=== PATIENT | female | born 1995 | race Caucasian/White ===

== ENCOUNTER 2017-06-06 18:59 | Emergency (ER) | payer OTHER ==
[2017-06-06 19:08] VITALS: RESP 16
[2017-06-06] MEDS ORDERED: NS 1,000 ML IV ONE (19:24)
--- NOTE | 2017-06-06 19:25 | EDPHY ---
H & P Stated Complaint: extended syncopal event with blood draw Time Seen by Provider: 06/06/17 19:12 HPI/ROS: Chief Complaint: Syncope HPI: 21-year-old female was at her doctor's office today and had bloods drawn. About 10 minutes after the blood draw while walking out she had a syncopal episode. Mom caught her lowered to the ground. The patient was unconscious for about 10 minutes. She was attended to by her physician and recovered. She was cautioned that if she continued to have any symptoms she should come the hospital. Patient states she is still complaining of feeling a little bit short of breath and is still feeling nauseated. She has a family history that is significant as her brother has factor 5 Leiden and has had multiple blood clots in the past. He is currently taking Xarelto. She has not been tested. She denies any palpitations. No prior episodes of syncope. No recent fevers or chills. No leg pain or swelling. Last menstrual. Was 2 weeks ago was normal. She does not take control. ROS: 10 point Review of Systems is negative except as noted in the HPI. PMH: Denies Social History: No smoking, no alcohol, no recreational drug use Family History: non-contributory Physical Exam: Gen: Awake, Alert, No Distress HEENT: Nose: no rhinorrhea Eyes: PERRLA, EOMI Mouth: Moist mucosa Neck: Supple, no JVD Chest: nontender, lungs clear to auscultation Heart: S1, S2 normal, no murmur Abd: Soft, non-tender, no guarding Back: no CVA tenderness, no midline tenderness Ext: no edema, non-tender Skin: no rash Neuro: CN II-XII intact, Sensation grossly intact, Strength 5/5 in bilateral upper and lower extremities - Personal History LMP (Females 10-55): 8-14 Days Ago Current Tetanus/Diphtheria Vaccine: Yes - Medical/Surgical History Hx Asthma: No Hx Chronic Respiratory Disease: No Hx Diabetes: No Hx Cardiac Disease: No Hx Renal Disease: No Hx Cirrhosis: No Hx Alcoholism: No Hx HIV/AIDS: No Hx Splenectomy or Spleen Trauma: No Other PMH: anxiety/acne - Social History Smoking Status: Never smoked Constitutional: Initial Vital Signs Temperature (C) 37.1 C 06/06/17 19:05 Heart Rate 83 06/06/17 19:05 Respiratory Rate 16 06/06/17 19:05 Blood Pressure 112/74 06/06/17 19:05 O2 Sat (%) 98 06/06/17 19:05 O2 Delivery Mode Room Air Allergies/Adverse Reactions: No Known Allergies Allergy (Unverified 06/06/17 19:04) Home Medications: Medication Instructions Recorded PROPRANOLOL/HYDROCHLOROTHIAZID 06/06/17 Spironolactone 06/06/17 Medical Decision Making - Diagnostics EKG Interpretation: ECG time 7:28 p.m., sinus rhythm with a rate of 78, normal axis, normal intervals, no acute ST or T-wave changes. ED Course/Re-evaluation: 21-year-old with syncopal episode after blood drawn today. While this is likely secondary to vasovagal event she has a family history of a brother with factor 5 Leiden. She also also was on wrist conscious for 10 minutes. Will obtain a ECG, blood work and D-dimer. Will L fluid and reassess. Patient's ECG is normal. Her D-dimer is normal. CBC is negative. - Data Points Laboratory Results: Laboratory Results 06/06/17 19:35 06/06/17 19:35 06/06/17 06/06/17 06/06/17 19:35 19:35 19:35 WBC 9.21 10^3/uL 10^3/uL (3.80-9.50) RBC 4.58 10^6/uL 10^6/uL (4.18-5.33) Hgb 14.0 g/dL g/dL (12.6-16.3) Hct 42.3 % % (38.0-47.0) MCV 92.4 fL fL (81.5-99.8) MCH 30.6 pg pg (27.9-34.1) MCHC 33.1 g/dL g/dL (32.4-36.7) RDW 11.7 % % (11.5-15.2) Plt Count 322 10^3/uL 10^3/uL (150-400) MPV 10.1 fL fL (8.7-11.7) Neut % (Auto) 72.4 % % (39.3-74.2) Lymph % (Auto) 19.2 % % (15.0-45.0) [place] % (Auto) 6.2 % % (4.5-13.0) Eos % (Auto) 1.1 % % (0.6-7.6) Baso % (Auto) 0.7 % % (0.3-1.7) Nucleat RBC Rel Count 0.0 % % (0.0-0.2) Absolute Neuts (auto) 6.67 10^3/uL H 10^3/uL (1.70-6.50) Absolute Lymphs (auto) 1.77 10^3/uL 10^3/uL (1.00-3.00) Absolute Monos (auto) 0.57 10^3/uL 10^3/uL (0.30-0.80) Absolute Eos (auto) 0.10 10^3/uL 10^3/uL (0.03-0.40) Absolute Basos (auto) 0.06 10^3/uL 10^3/uL (0.02-0.10) Absolute Nucleated RBC 0.00 10^3/uL 10^3/uL (0-0.01) Immature Gran % 0.4 % % (0.0-1.1) Immature Gran # 0.04 10^3/uL 10^3/uL (0.00-0.10) D-Dimer < 0.27 ug/mLFEU ug/mLFEU (0.00-0.50) Sodium 141 mEq/L mEq/L (134-144) Potassium 4.2 mEq/L mEq/L (3.5-5.2) Chloride 103 mEq/L mEq/L (97-110) Carbon Dioxide 21 mEq/l L mEq/l (22-31) Anion Gap 17 mEq/L H mEq/L (8-16) BUN 15 mg/dL mg/dL (7-23) Creatinine 0.8 mg/dL mg/dL (0.6-1.0) Estimated GFR > 60 Glucose 84 mg/dL mg/dL (70-100) Calcium 8.6 mg/dL mg/dL (8.5-10.4) Medications Given: Discontinued Medications Sodium Chloride (Ns) 1,000 mls @ 0 mls/hr IV ONCE ONE PRN Reason: Wide Open Stop: 06/06/17 19:25 Last Admin: 06/06/17 19:36 Dose: 1,000 mls Departure - Departure Disposition: Home, Routine, Self-Care Clinical Impression: Vasovagal syncope Condition: Good Instructions: Syncope (ED) Additional Instructions: Drink plenty of fluids. Follow up with primary care doctor in 2-3 days for re-evaluation if symptoms are not improved. Return emergency department if you faint again, have chest pain or palpitations. Gastrointestinal breath, fevers or chills, or any other concerns. Referrals: Zelda Jones MD [Primary Care Provider] - As per Instructions
--- NOTE | 2017-06-06 19:30 | CPEKG ---
Heart Rate: 78 RR Interval: 769 P-R Interval: 140 QRSD Interval: 82 QT Interval: 376 QTC Interval: 429 P Harshaw: 50 QRS Harshaw: 63 T Wave Harshaw: -12 EKG Severity - BORDERLINE ECG - EKG Impression: SINUS RHYTHM EKG Impression: BORDERLINE T ABNORMALITIES, INFERIOR LEADS Electronically Signed By: Noel Guy 06-Jun-2017 23:22:54
[2017-06-06 19:43] LABS: % IMMATURE GRANULYOCYTES 0.4 % (0.0-1.1); ABSOLUTE IMMATURE GRANULOCYTES 0.04 10^3/uL (0.00-0.10); ADD DIFF? NO; ADD MORPH? NO; ADD SCAN? NO; ATYPICAL LYMPHOCYTE FLAG 20 (0-99); FRAGMENT RBC FLAG 0 (0-99); HEMATOCRIT 42.3 % (38.0-47.0); LEFT SHIFT FLG 0 (0-99); LIPEMIA HEMOLYSIS FLAG 80 (0-99); MEAN CELL HEMOGLOBIN 30.6 pg (27.9-34.1); MEAN CELL HEMOGLOBIN CONCENTR. 33.1 g/dL (32.4-36.7); MEAN CELL VOLUME 92.4 fL (81.5-99.8); MEAN PLATELET VOLUME 10.1 fL (8.7-11.7); PLATELET CLUMPS FLAG 10 (0-99); PLATELET COUNT 322 10^3/uL (150-400); RED BLOOD CELL COUNT 4.58 10^6/uL (4.18-5.33); RED CELL DISTRIBUTION WIDTH 11.7 % (11.5-15.2)
[2017-06-06 19:56] LABS: ANION GAP 17 mEq/L (8-16); CALCIUM 8.6 mg/dL (8.5-10.4); CARBON DIOXIDE 21 mEq/l (22-31); CHLORIDE 103 mEq/L (97-110); CREATININE 0.8 mg/dL (0.6-1.0); GLOMERULAR FILTRATION RATE > 60; GLUCOSE 84 mg/dL (70-100); POTASSIUM 4.2 mEq/L (3.5-5.2); SODIUM 141 mEq/L (134-144)
[2017-06-06 20:57] VITALS: BP 111/65; PULSE 66; TEMP 99.5; O2SAT 96
== END 2017-06-06 20:56 | disposition home or self-care (01) ==
DX: R55 Syncope and collapse (principal)

== ENCOUNTER 2018-05-04 17:32 | Emergency (ER) | payer OTHER ==
[2018-05-04] MEDS ORDERED: ONDANSETRON DISINTEGRATING 4 MG TAB PO ONE (17:45)
--- NOTE | 2018-05-04 18:03 | EDPHY ---
H & P Stated Complaint: Nausea and vomiting, generalized abdomen pain x 3 days. Time Seen by Provider: 05/04/18 17:44 HPI/ROS: 22-year-old female presents for 3 days of vomiting, diarrhea, crampy abdominal pain. She states she was seen at an urgent care this afternoon who is concerned she may have appendicitis and with recommended that she go to the emergency department. She denies any unusual exposures she denies travel as she denies unusual water source. She states she does have a history of food insensitive the sensitivities and often will have 1 episode of vomiting if she eats something she is sensitive to but this is quite unusual to have had 3 days of vomiting . Review of systems As per HPI General no fever no chills no weakness HEENT no eye pain no eye discharge. No eye redness, no sore throat Respiratory no cough, no shortness of breath Cardiac no chest pain, no peripheral edema GI positive vomiting positive nausea positive diarrhea, positive crampy abdominal pain no flank pain, no hematuria, no dysuria Musculoskeletal no myalgias, no joint pain Heme no easy bruising, no easy bleeding Endo no polyuria, no polydipsia Skin no rashes, no pruritus Neuro no syncope, no dizziness, no headaches Psych is no suicidal ideation, no homicidal ideation Source: Patient - Personal History LMP (Females 10-55): 22-28 Days Ago Current Tetanus Diphtheria and Acellular Pertussis (TDAP): Yes Tetanus Vaccine Date: within 10 years - Medical/Surgical History Hx Asthma: No Hx Chronic Respiratory Disease: No Hx Diabetes: No Hx Cardiac Disease: No Hx Renal Disease: No Hx Cirrhosis: No Hx Alcoholism: No Hx HIV/AIDS: No Hx Splenectomy or Spleen Trauma: No Other PMH: anxiety/acne - Family History Significant Family History: No pertinent family hx - Social History Smoking Status: Never smoked Alcohol Use: None Drug Use: None - Physical Exam Exam: 22-year-old female alert and oriented no acute distress nontoxic appearance, afebrile HEENT atraumatic normocephalic, extraocular muscles intact, anicteric Oropharynx negative for erythema negative exudate, tolerating her own secretions Neck supple no meningismus Lungs clear to auscultation bilaterally Heart regular rate and rhythm without murmur rub or gallop Abdomen nondistended normoactive bowel sounds soft , mild right lower quadrant tenderness Back no CVA tenderness, no step-offs, no spinal tenderness Extremities no cyanosis clubbing or edema Neuro alert and oriented, no focal deficits Constitutional: Initial Vital Signs Temperature (C) 36.8 C 05/04/18 17:41 Heart Rate 80 05/04/18 17:41 Respiratory Rate 16 05/04/18 17:41 Blood Pressure 106/78 05/04/18 17:41 O2 Sat (%) 98 05/04/18 17:41 O2 Delivery Mode Room Air Allergies/Adverse Reactions: No Known Allergies Allergy (Verified 05/04/18 17:41) Home Medications: Medication Instructions Recorded Spironolactone 06/06/17 Prozac 10 MG (*) 05/04/18 Vyvanse 05/04/18 Medical Decision Making - Diagnostics Imaging Results: Imaging Impressions Abdomen Ultrasound 05/04/18 18:05 Impression: No indirect sonographic evidence for appendicitis. Results called to Dr. Becerra at 18:37. Abdomen CT 05/04/18 19:28 Impression: 1. Small amount of nonspecific pelvic free fluid. 2. No evidence of appendicitis or bowel obstruction. 3. Degenerative lumbar disk disease and findings suggesting remote sacroiliitis. Results called and discussed with Vijaya Becerra MD, at 05/04/2018 20:06 General information for patients regarding this examination can be found at [email or web address]. If you have questions or comments about this report, please contact me at (hospital) or [phone] (cell). ED Course/Re-evaluation: Patient seen and evaluated for nausea vomiting diarrhea, crampy abdominal pain of 3 days duration. IV established 1 L normal saline started, patient given an oral Zofran prior to IV start. Labs were sent Lactate 2.5 WBC wnl urine pos ketones US cannot visualize appendix CT scan abd/pelvis negative for appendicitis given 2 liters fluid, iv ondansetron, reglan and diphenhydramine. Imp gastroenteritis dehydraiton Plan dc home with zofran return if worsening Differential Diagnosis: Direct trauma differential diagnosis considered but not limited To: Appendicitis, cholecystitis, pancreatitis, gastroenteritis, cyclical vomiting - Data Points Laboratory Results: 05/04/18 05/04/18 18:38 18:32 POC Sodium 143 mEq/L mEq/L (135-145) POC Potassium 3.8 mEq/L mEq/L (3.3-5.0) POC Chloride 103.0 mEq/L mEq/L (97-110) POC Total CO2 23 mEq/L mEq/L (22-31) POC BUN 8 mg/dL mg/dL (7-23) POC Creatinine 0.9 mg/dL mg/dL (0.6-1.0) POC Glucose 86 mg/dL mg/dL (70-100) POC Lactic Acid Marlo 2.5 mmol/L H mmol/L (0.7-2.1) POC Calcium 9.0 mg/dL mg/dL (8.5-10.4) POC Total Bilirubin 1.5 mg/dL H mg/dL (0.1-1.4) POC AST 28 IU/L IU/L (14-46) POC ALT 26 IU/L IU/L (9-52) POC Alk Phosphatase 61 IU/L IU/L (38-126) POC Total Protein 7.9 g/dL g/dL (6.3-8.2) POC Albumin 4.1 g/dL g/dL (3.5-5.0) Medications Given: Discontinued Medications Diphenhydramine HCl (Benadryl Injection) 25 mg IVP EDNOW ONE Stop: 05/04/18 20:56 Last Admin: 05/04/18 20:58 Dose: 25 mg Sodium Chloride (Ns) 1,000 mls @ 0 mls/hr IV ONCE ONE PRN Reason: Wide Open Stop: 05/04/18 18:05 Last Admin: 05/04/18 18:26 Dose: 1,000 mls Sodium Chloride (Ns) 1,000 mls @ 0 mls/hr IV ONCE ONE PRN Reason: Wide Open Stop: 05/04/18 18:47 Last Admin: 05/04/18 19:00 Dose: 1,000 mls Sodium Chloride (Ns) 1,000 mls @ 0 mls/hr IV ONCE ONE PRN Reason: Wide Open Stop: 05/04/18 20:17 Last Admin: 05/04/18 20:24 Dose: 1,000 mls Ketorolac Tromethamine (Toradol) 30 mg IVP EDNOW ONE Stop: 05/04/18 18:49 Last Admin: 05/04/18 19:01 Dose: 30 mg Metoclopramide HCl (Reglan Injection) 10 mg IVP EDNOW ONE Stop: 05/04/18 20:55 Last Admin: 05/04/18 20:59 Dose: 10 mg Ondansetron HCl (Zofran Odt) 4 mg PO EDNOW ONE Stop: 05/04/18 17:46 Last Admin: 05/04/18 17:50 Dose: 4 mg Ondansetron HCl (Zofran) 4 mg IVP EDNOW ONE Stop: 05/04/18 20:18 Last Admin: 05/04/18 20:23 Dose: 4 mg Ondansetron HCl (Zofran Odt 4 Mg Prepack#2) 1 btl TAKEHOME EDNOW ONE Stop: 05/04/18 21:38 Last Admin: 05/04/18 21:51 Dose: 1 btl Point of Care Test Results: CBC CBC Collection Date 05/04/18 CBC Collection Time 17:55 WBC 6.6 RBC 4.89 HGB 14.9 HCT 45.1 PLT 296 Neut # 4.7 Neut 71.6 LYMPH # 1.5 LYMPH 22.2 Other WBC # 0.4 Other WBC 6.2 MCV 92.2 Chemistry 05/04/18 18:32 POC Sodium 143 mEq/L mEq/L (135-145) POC Potassium 3.8 mEq/L mEq/L (3.3-5.0) POC Chloride 103.0 mEq/L mEq/L (97-110) POC Total CO2 23 mEq/L mEq/L (22-31) POC BUN 8 mg/dL mg/dL (7-23) POC Creatinine 0.9 mg/dL mg/dL (0.6-1.0) POC Glucose 86 mg/dL mg/dL (70-100) POC Calcium 9.0 mg/dL mg/dL (8.5-10.4) POC Total Bilirubin 1.5 mg/dL H mg/dL (0.1-1.4) POC AST 28 IU/L IU/L (14-46) POC ALT 26 IU/L IU/L (9-52) POC Alk Phosphatase 61 IU/L IU/L (38-126) POC Total Protein 7.9 g/dL g/dL (6.3-8.2) POC Albumin 4.1 g/dL g/dL (3.5-5.0) Blood Gas/Lactic Acid-Venous 07/23/18 18:38 POC Lactic Acid [place] 2.5 mmol/L H mmol/L (0.7-2.1) Urine Collection Date 05/04/18 Collection Time 19:05 HCG Results Negative Urine Dip Collection Date 05/04/18 Collection Time 19:05 Specific [place] (1.002-1.030) 1.015 PH (5.0-7.5) 6.5 Leukocytes (Negative) Negative Nitrites (Negative) Negative Protein (Negative) Negative Glucose (Negative) Negative Ketones (Negative) 3+ Urobilnogen (0.2-1.0 EU) 0.2 Bilirubin (Negative) Negative Blood (Negative) Negative Departure - Departure Disposition: Home, Routine, Self-Care Clinical Impression: Severe nausea and vomiting, Dehydration Condition: Good Instructions: Dehydration (ED), Gastroenteritis (ED) Referrals: NONE *PRIMARY CARE P,. [Primary Care Provider] - As per Instructions
[2018-05-04] MEDS ORDERED: NS 1,000 ML IV ONE ×3 (18:04→20:16)
[2018-05-04] MEDS ORDERED: KETOROLAC 30 MG/1 ML SDV IVP ONE (18:48)
[2018-05-04] MEDS ORDERED: IOPAMIDOL (ISOVUE-300) 100 ML BTL ONE (19:36)
[2018-05-04] MEDS ORDERED: ONDANSETRON 4 MG/2 ML VIAL IVP ONE (20:17)
[2018-05-04] MEDS ORDERED: METOCLOPRAMIDE 10 MG/2 ML VIAL ONE (20:54)
[2018-05-04] MEDS ORDERED: METOCLOPRAMIDE 10 MG/2 ML VIAL IVP ONE (20:54)
[2018-05-04] MEDS ORDERED: ONDANSETRON 4MG PREPACK#2 BTL TAKEHOME ONE (21:37)
[2018-05-04 22:14] VITALS: BP 108/64
== END 2018-05-04 22:19 | disposition home or self-care (01) ==
LOC: CED 17:32
DX: E86.0 Dehydration (principal)
CPT/HCPCS: 74177-PO; 76705-PO; 80053-PO; 83605-PO; 96374; J1200; J1885; J2405; J2765; Q9967